=== PATIENT | female | born 1950 | race Caucasian/White ===

== ENCOUNTER 2017-10-18 03:51 | Emergency (ER) | payer MEDICAID, MEDICARE ==
[~2017-10-18] VITALS: Ht 152.4 cm; Wt 61.8 kg
[2017-10-18] MEDS ORDERED: ENZY1CAP PO (04:10)
[2017-10-18] MEDS ORDERED: MULT-1203 PO (04:10)
[2017-10-18 04:32] LABS: APPEARANCE,URINE TURBID (CLEAR); BILIRUBIN,URINE NEGATIVE (NEGATIVE); GLUCOSE, URINE (UA) NEGATIVE (NEGATIVE); KETONES,URINE NEGATIVE (NEGATIVE); LEUKOCYTE ESTERASE ,URINE LARGE (NEGATIVE); NITRATE,URINE NEGATIVE (NEGATIVE); OCCULT BLOOD,URINE LARGE (NEGATIVE); PROTEIN,URINE SEE CONFIRM (NEGATIVE); UROBILINOGEN,URINE 0.2 mg/dL (<=1.0)
[2017-10-18 04:51] LABS: BACTERIA,URINE Few /HPF (None Seen); SULFOSALICYLIC ACID,URINE 2+ (Negative); WBC,URINE >100 /HPF (0-5)
[2017-10-18 04:52] LABS: SQUAMOUS EPITHELIAL CELL,UR Rare /LPF (None Seen)
[2017-10-18] MEDS ORDERED: CEPHALEXIN MONOHYDRATE 500 MG CAPSULE PO ONE (05:15)
[2017-10-18] MEDS ORDERED: PHENAZOPYRIDINE HCL 100 MG TABLET PO ONE (05:15)
[2017-10-18] MEDS ORDERED: ONDANSETRON HCL 4 MG TABLET PO ONE (05:15)
[2017-10-18 05:26] VITALS: BP 128/74
== END 2017-10-18 05:33 | disposition home or self-care (01) ==
LOC: EMS 03:52
DX: N39.0 Urinary tract infection, site not specified (principal); H92.02 Otalgia, left ear
CPT/HCPCS: 81001; 87077; 87086; 87186; 99284; Q0162